=== PATIENT | female | born 1965 | race Two or more races ===

== ENCOUNTER → 2020-12-05 | Outpatient (CLI) | payer OTHER ==
[~2020-12-05] MED LIST: AMLO1CAP5 PO; ASPI-630 PO; AZEL137S3 NS; FLAX10003 PO; FLUT16SP NS; HYDR12.575 PO; LOVA20TA2 PO; MULT-496 PO
== END ==
LOC: LAB 10:14
PROVIDERS: ATTEND Orthopaedic Surgery
DX: Z01.812 Encounter for preprocedural laboratory examination (principal); Z20.828 Contact with and (suspected) exposure to other viral communicable diseases
CPT/HCPCS: U0003

== ENCOUNTER 2020-12-08 09:46 | Day surgery (SDC) | payer OTHER ==
--- NOTE | 2020-12-07 19:44 | PDOC1 ---
History and Physical Date of Admission Date of Admission 12/08/2020 Identification/Chief Complaint Chief Complaint Right knee pain Source Source: Chart review, Patient History of Present Illness History of Present Illness 55-year-old wtih right knee pain. Works as a deputy. History of right knee meniscus tear with arthroscopic meniscectomy by me in 2012. She describes p rogressive bilateral knee pain for years that has since especially progressed after working a lot of overtime and shopping for [employer]. Patient locates sharp and throbbing pain that became so severe that she eventually presented to [facility] ED on 09/27/20 where an MRI was ordered, as shown below with recurrent meniscus tear. Since then, patient reports that her pain has persisted and is aggravated by movement, walking, and standing. She also notices some mechanical loose body symptoms: locking with a feeling like her knee "needs to pop". She has used a brace which has helped. Ambulating with single crutch. Current Medications Current Medications Current Medications Ondansetron HCl (Zofran) 4 mg PRN Q6HRS PRN IV NAUSEA/VOMITING; Start 12/08/20 at 07:00; Stop 12/09/20 at 06:59 Fentanyl Citrate (Fentanyl 2ml Vial) 25 mcg PRN Q5MIN PRN IV MILD PAIN 1-3; Start 12/08/20 at 07:00; Stop 12/09/20 at 06:59 Fentanyl Citrate (Fentanyl 2ml Vial) 50 mcg PRN Q5MIN PRN IV MODERATE TO SEVERE PAIN; Start 12/08/20 at 07:00; Stop 12/09/20 at 06:59 Morphine Sulfate (Morphine Sulfate) 1 mg PRN Q10MIN PRN IV SEVERE PAIN 7-10; Start 12/08/20 at 07:00; Stop 12/09/20 at 06:59; Status UNV Ringer's Solution 1,000 ml @ 30 mls/hr Q24H IV ; Start 12/08/20 at 07:00; Stop 12/08/20 at 18:59 Lidocaine HCl (Xylocaine-Mpf 1% 2ml Vial) 2 ml PRN 1X PRN ID PRIOR TO IV START; Start 12/08/20 at 07:00; Stop 12/09/20 at 06:59 Hydromorphone HCl (Dilaudid) 0.5 mg PRN Q10MIN PRN IV SEV PAIN, Second choice; Start 12/08/20 at 07:00; Stop 12/09/20 at 06:59; Status UNV Prochlorperazine Edisylate (Compazine) 5 mg PACU PRN PRN IV NAUSEA, MRX1; Start 12/08/20 at 07:00; Stop 12/09/20 at 06:59 Vancomycin HCl 250 ml @ 250 mls/hr 1X PREOP PRN IV PRIOR TO SURGERY; Start 12/07/20 at 17:30 Active Scripts Active Reported Azelastine Hcl 137 Mcg/0.137 Ml Jefferson.pump 137 Mcg NS DAILY Fluticasone Propionate Nasal Jefferson (Fluticasone Propionate) 16 Gm Jefferson.susp 2 Jefferson NS DAILY Aspirin 81 Mg Tab.chew 81 Mg PO DAILY Hydrochlorothiazide Capsule (Hydrochlorothiazide) 12.5 Mg Capsule 12.5 Mg PO DAILY Lovastatin 20 Mg Tablet 20 Mg PO HS Lotrel 5-10 Mg Capsule (Amlodipine Besylate/Benazepril) 1 Each Capsule 1 Each PO DAILY Flax Oil (Flaxseed Oil) 1,000 Mg Capsule 1,000 Mg PO DAILY Daily Value (Multivitamin) 1 Each Tablet 1 Each PO DAILY Allergies Allergies: Coded Allergies: Penicillins (Verified Allergy, Intermediate, SWELLING, ITCHING, RASH, 12/04/20) codeine (Verified Allergy, Intermediate, SWELLING,ITCHING, RASH, 12/04/20) hydrocodone (Verified Allergy, Intermediate, SWELLING, ITCHING, 12/04/20) ibuprofen (Verified Allergy, Intermediate, SWELLING,ITCHING, RASH, 12/04/20) clindamycin (Verified Allergy, Mild, Nausea and Vomiting, 12/04/20) tramadol (Verified Allergy, Mild, Nausea and Vomiting, 12/04/20) Physical Exam General: Alert, Cooperative HEENT: Atraumatic Lungs: Normal air movement Heart: RRR Abdomen: Soft Extremities: Other (The RIGHT knee shows normal alignment, no masses and no effusion. There is tenderness at the medial joint line and a positive medial Jeff's test. The lateral joint line shows no tenderness. Range of motion is 0-135 degrees. There is trace patellofemoral crepitus. Jeff's test is positive. There is medial joint line pain with deep flexion and especially with rotation of the tibia. The knee is stable to varus and valgus stress without subluxation or laxity. The ACL feels intact on Kamlesh testing. Muscle strength is normal (5/5) for quadriceps and hamstrings, and muscle tone is normal. The skin is normal with no scars, rashes, lesions or ulcers. Light touch sensation is intact. No edema and no varicosities. Dorsalis pedis pulse is intact and capillary refill is normal. ) Images Images Outside MRI from [facility] right knee 10/13/2020 shows distinct medial meniscus tear series 401 image 13 and 12. There is some posterior femoral chondromalacia on series 401 image 11. Impression: 1. Horizontal tear extends through the posterior horn and body of the medial meniscus. 2. More vertical tearing of the junction of the posterior horn and body of lateral meniscus. 3. Ligaments are intact. 4. A loose body is noted along the inferior aspect of the suprapatellar bursa measuring 8 mm. [facility] [address] [place], [place] [id number] IMAGING REPORT Signed PATIENT: EDISON DUNCAN ACCOUNT: [id number] : 1965 LOCATION: [facility] AGE: 55 SEX: F EXAM STATUS: PRE CLI ORD. PHYSICIAN: CANDIDO GUO MD REASON: BILAT KNEE PAIN PROCEDURE: KNEE STANDING BILAT AP XR KNEE_AP BILAT STANDING, XR KNEE 1-2 VIEWS 11/09/2020 9:36 AM INDICATION: Bilateral knee pain COMPARISON: None available. TECHNIQUE: 3 views the right and 3 views left knee are provided. FINDINGS/ IMPRESSION: No significant knee joint effusion. There is no acute fracture or dislocation. Joint mild patellofemoral joint space narrowing of the right knee with marginal osteophytosis as well as mild osteoarthrosis. Mild bilateral medial femorotibial osteoarthrosis with mild joint space scarring. Bone mineralization is within normal limits. Regional soft tissues are within normal limits. There is no soft tissue gas or osseous erosion. No radiopaque foreign body. Electronically signed by: Rose Quispe MD (11/09/2020 10:51 AM) [id number] DICTATED and SIGNED BY: ROSE QUISPE MD DATE: 11/09/20 1050 VTE Prophylaxis Ordered VTE Prophylaxis Devices: Yes VTE Pharmacological Prophylaxi: Yes Assessment/Plan Assessment/Plan Her MRI shows a medial and lateral meniscus tear. We reviewed her MRI with previous x-rays and discussed the natural history of the condition as well as the risks, benefits, and alternatives to treatment. Given her failure of more conservative measures and continued severe pain with loss of function, my recommendation is arthroscopic surgery. Plan for right knee arthroscopy with meniscectomy and possible loose body removal. We discussed potential risks of arthroscopic surgery, including risks of bleeding, infection, progressive arthritis, blood clots, or other potential surgical or anesthetic complications. We also discussed postoperative treatment and expectations including progression of arthritis following knee arthroscopy. Meniscus tears unfortunately are a risk factor to develop osteoarthritis. My current recommendation is for arthroscopic surgery considering her age and the minimal degenerative changes seen radiographically. The complex meniscus tear is a sign that her knee will further deteriorate in the future, hopefully years from now, and she might ultimately need knee replacement when she is in her 60s or 70s. I do not recommend knee replacement with these minimal degenerative changes, and believe that she has much to benefit from an arthroscopic procedure. All of her questions were answered and she desires to proceed with surgery. She is here today for elective right knee arthroscopic medial and lateral meniscectomy. Justifications for Admission Other Justification CANDIDO GUO MD Dec 07, 2020 19:44
[~2020-12-08] VITALS: Ht 163.8 cm; Wt 102.1 kg
[~2020-12-08 09:46] MED LIST changes: +BUPIVACAINE-EPI 0.25%-1:200000 MPF 30 ML VIAL. INJ ONE; +HYDROmorphone 2 MG/ML VIAL IV PRN; +LIDOCAINE 1% PF 2 ML VIAL. ID PRN; +MORPHINE SULFATE 2 MG/ML VIAL. IV PRN; +ONDANSETRON PF 4 MG/2 ML VIAL. IV PRN; +PROCHLORPERAZINE 10 MG/2 ML VIAL. IV PRN; +VANCOMYCIN 1GM IVPB FOR OMNI 250 ML IV PRN; +fentaNYL PF VIAL 100 MCG/2 ML VIAL IV PRN
[2020-12-08] MEDS: IV RINGERS,LACTATED 1000ML 1,000 ML IV SCH ×2 (10:27→13:07)
[2020-12-08] MEDS ORDERED: fentaNYL PF VIAL 100 MCG/2 ML VIAL ONE ×2 (10:58→12:56)
[2020-12-08] MEDS ORDERED: ONDANSETRON PF 4 MG/2 ML VIAL. ONE (10:58)
[2020-12-08] MEDS ORDERED: PROPOFOL 10 MG/ML (20ML) VIAL. IV ONE (10:58)
[2020-12-08] MEDS ORDERED: LIDOCAINE 2% PF 5 ML VIAL. ONE (10:58)
[2020-12-08] MEDS ORDERED: DEXAMETHASONE SOD PHOS 4 MG/ML VIAL ONE (10:58)
[2020-12-08] MEDS ORDERED: EPINEPHrine VIAL 30 MG/30 ML VIAL ONE (11:18)
[2020-12-08] MEDS ORDERED: SEVOFLURANE 61 TO 120 MINUTES. IH ONE (12:15)
[2020-12-08] MEDS: fentaNYL PF VIAL 100 MCG/2 ML VIAL IV PRN ×2 (13:06→13:21)
--- NOTE | 2020-12-08 13:07 | PDOC4 ---
Operative Note Operative Note Date of Procedure: December 08, 2020 Preoperative Diagnosis: right knee medial and lateral meniscus tears Postoperative Diagnosis: * complex tear medial meniscus, current injury, right knee, initial encounter, S83.231A * complex tear of lateral meniscus, current injury, right knee, initial encounter, S83.271A Procedures Performed: right knee arthroscopy, surgical, with meniscectomy, medial AND lateral, including meniscal shaving, including debridement/shaving of articular cartilage (chondroplasty) CPT 09171 Surgeon: Candido Mcfarland MD Woods Warden: JOSE Perez Anesthesia: General Estimated Blood Loss: 10 mL Specimens: none Drains: none Complications: none Tourniquet time: 34 minutes at 300 mm Hg Indications for Procedure: The patient is a 55-year-old with right knee pain, unrelieved with nonoperative treatment. Exam and MRI are consistent with a meniscus tear. We talked about the risks and benefits of proceeding with an arthroscopic procedure. We talked about potential risks of ongoing pain, progressive arthritis, bleeding, infection, blood clots, or other potential surgical or anesthetic complications. All of the patient's questions about surgery were answered and they desired to proceed. Written consent was obtained. Description of Operation: The patient was identified in the preoperative holding area. The correct right knee was marked by me. The patient was taken to the operating room, where a general anesthetic was used. Preoperative antibiotics were given intravenously. A time-out procedure was performed. A tourniquet was placed on the upper thigh. Local anesthetic 20 mL of 0.25% bupivacaine was injected using sterile technique into the knee joint. The limb was prepared circumferentially with ChloraPrep solution and sterile waterproof arthroscopy drapes were applied. The limb was exsanguinated with an Esmarch bandage and the tourniquet was inflated. Lateral and medial arthroscopy portals were established. The medial meniscus showed a complex unrepairable tear with unstable flaps. A meniscectomy was performed with basket forceps and the motorized shaver back to a smooth stable base, and the resection tapered into the middle one-third of the meniscus.The medial tibiofemoral joint showed chondromalacia Outerbridge grade I, so no chondroplasty was required.The intercondylar notch was free of loose bodies, and the ACL was intact. The lateral tibiofemoral joint showed a complex unrepairable meniscus tear, and a meniscectomy was performed with basket forceps and the motorized shaver back to a smooth stable base.The lateral articular surfaces showed chondromalacia Outerbridge grade II, so a shaving chondroplasty was performed removing loose unstable fragments of articular cartilage. The patellofemoral joint showed chondromalacia Outerbridge grade II, so a shaving chondroplasty was performed removing loose unstable fragments of articular cartilage. The suprapatellar pouch, medial and lateral gutters were free of loose bodies. There was a little bit of synovium around the patella which maybe is mimicking the loose body. No loose body could be detected. I a lso placed the arthroscope in the posterior compartment and there was no loose body in that location. Copious irrigation was used to drain all meniscal and chondral fragments, and the knee was drained of fluid. The portals were closed with #3-0 Prolene interrupted sutures. Additional local anesthetic, 30 mL of 0.25% bupivacaine with epinephrine was injected. A bulky sterile dressing was applied and the tourniquet was released. Needle and sponge counts were correct and there were no apparent complications. CANDIDO MCFARLAND MD Dec 08, 2020 13:07
[2020-12-08 13:34] VITALS: BP 168/78
[2020-12-08] MEDS ORDERED: ACETAMINOPHEN 500 MG TABLET PO ONE (13:45)
== END 2020-12-08 14:30 | disposition home or self-care (01) ==
LOC: SURG 09:46
PROVIDERS: ATTEND Orthopaedic Surgery
DX: S83.231A Complex tear of medial meniscus, current injury, right knee, initial encounter (principal); S83.271A Complex tear of lateral meniscus, current injury, right knee, initial encounter; M94.261 Chondromalacia, right knee; E78.00 Pure hypercholesterolemia, unspecified; I10 Essential (primary) hypertension; K21.9 Gastro-esophageal reflux disease without esophagitis; G47.30 Sleep apnea, unspecified; Z90.710 Acquired absence of both cervix and uterus; Z98.51 Tubal ligation status; Z98.890 Other specified postprocedural states; Z79.82 Long term (current) use of aspirin; Z79.899 Other long term (current) drug therapy; Z88.0 Allergy status to penicillin; Z88.1 Allergy status to other antibiotic agents; Z88.5 Allergy status to narcotic agent; Z88.8 Allergy status to other drugs, medicaments and biological substances; X58.XXXA Exposure to other specified factors, initial encounter; Y93.89 Activity, other specified; Y92.89 Other specified places as the place of occurrence of the external cause; Y99.8 Other external cause status
CPT/HCPCS: 29880; J0171; J1100; J2405; J2704; J3010; J3370; J3490

== ENCOUNTER → 2021-06-22 | Outpatient (CLI) | payer OTHER ==
[~2021-06-22] MED LIST changes: -BUPIVACAINE-EPI 0.25%-1:200000 MPF 30 ML VIAL. INJ ONE; -HYDROmorphone 2 MG/ML VIAL IV PRN; -LIDOCAINE 1% PF 2 ML VIAL. ID PRN; -MORPHINE SULFATE 2 MG/ML VIAL. IV PRN; -ONDANSETRON PF 4 MG/2 ML VIAL. IV PRN; -PROCHLORPERAZINE 10 MG/2 ML VIAL. IV PRN; -VANCOMYCIN 1GM IVPB FOR OMNI 250 ML IV PRN; -fentaNYL PF VIAL 100 MCG/2 ML VIAL IV PRN
--- NOTE | 2021-06-22 16:30 | KCIC ---
EXAM: Lumbar spine MRI without contrast. HISTORY: Pain. TECHNIQUE: Multiplanar, multisequence magnetic resonance imaging of the lumbar spine was performed wi thout contrast. COMPARISON: 06/30/2006 FINDINGS: There is mild lumbar levocurvature. There is 3 mm retrolisthesis of L5 on S1. There is dege nerative endplate remodeling with disc space narrowing, osteophytosis, Schmorl's node formation and d isc desiccation at L5-S1. There is also disc desiccation at L4-L5. There are few osseous hemangiomas. There is no suspicious osseous lesion. There is no fracture. The conus terminates at L1. At L1-L2, there is no stenosis. At L2-L3, there is no stenosis. At L3-L4, there is a minimal disc bulge and endplate remodeling. There is mild left facet arthropathy . There is no stenosis. At L4-L5, there is a shallow broad-based left paracentral to lateral recess disc protrusion with ciara lar tear superimposed on a disc bulge and endplate remodeling. There is mild bilateral facet arthropa thy. There is mild left foraminal stenosis. There is narrowing of the left lateral recess. There is m inimal central canal stenosis. At L5-S1, there is a shallow broad-based posterior central disc protrusion with 3 mmHg inferior extru cyrus and there are bilateral foraminal to lateral disc osteophyte complexes superimposed on a diffuse disc bulge and endplate remodeling. There is slight retrolisthesis. There is moderate right and mild left foraminal stenosis with abutment the exiting right greater than left L5 nerve roots. IMPRESSION: Degenerative change at the lower lumbar levels, described in detail above. This is minima lly increased compared to the prior study, resulting in mild left foraminal stenosis and narrowing of the left lateral recess with minimal central canal stenosis at L4-L5 and moderate right and mild lef t foraminal stenosis at L5-S1. Electronically signed by: Keiry Coppola MD (06/22/2021 4:28 PM) [id number]
== END ==
LOC: KCIC MRI 15:20
PROVIDERS: ATTEND Physician Assistant
DX: M47.816 Spondylosis without myelopathy or radiculopathy, lumbar region (principal); M51.27 Other intervertebral disc displacement, lumbosacral region; M48.07 Spinal stenosis, lumbosacral region; M43.17 Spondylolisthesis, lumbosacral region; M25.78 Osteophyte, vertebrae; M51.47 Schmorl's nodes, lumbosacral region
CPT/HCPCS: 72148

== ENCOUNTER → 2021-07-17 | Outpatient (CLI) | payer OTHER ==
[~2021-07-17] MED LIST changes: +CHOL5000 PO; +POTA10TA12 PO; +TURM500C4 PO
--- NOTE | 2021-07-17 16:02 | PDOC1 ---
INITIAL PAIN CONSULT DATE OF SERVICE: DOS: DATE: 07/17/21 TIME: 15:56 CHIEF COMPLAINT: Chief Complaint: Low back and left lower extremity pain HISTORY OF PRESENT ILLNESS: 56-year-old female presents with history of pain low back left lower extremity for many years worse over the past 1 year or so not the result of any specific injury or accident that she is aware but has been multiple injuries over the years by her report. Patient reports pain in the low back now rating the left lower extremity posterior gluteus posterior lateral thigh lateral anterior thigh anteromedial thigh medial lower leg and calf on the left side primarily some on the right but mostly on the left patient reports is worse with walking standing changing positions getting up from a seated position is waking her from sleep at night least once or twice through the night patient reports does affect her ability to walk which does not use any assistive devices. Patient is starting physical therapy tomorrow patient reports the pain is sharp in the low back throbbing the legs intermittent intensity tingling and numbness in the back and leg cramping and aching in the left lower extremity as well as in the low back. Patient reports her disability rating 0-10 10 made worse with 9 with family home responsibilities 10 with recreation social activity and occupational activity 8 with self-care and 8 with light support activities specially with sleeping. Patient has been taking [id number]-wummtow medications such as Tylenol and Motrin which do decrease the pain fairly significantly but only by about 30 to 40% and Advil tends to work better. Patient did have an MRI scan lumbar spine show degenerative change in the lower lumbar levels with L4-5 shallow broad-based left paracentral to lateral recess disc protrusion and annular tear with mild foraminal stenosis L5-S1 shows central broad-based central disc protrusion with bilateral to lateral disc osteophyte complexes and moderate right and mild left foraminal stenosis with abutment of the exiting right greater than left L5 nerve roots. PAST MEDICAL HISTORY: PMH: Hypertension, arthritis, multiple allergies PREVIOUS SURGERIES: Past Surgical Hx: Hysterectomy, tubal ligation, right colon resection CURRENT MEDICATIONS: Current Meds: Active Scripts Medications Dose Route/Sig Max Daily Dose Days Date Category Dose Instructions Vitamin D3 (Vitamin D) 125 Mcg Capsule 125 Mcg PO DAILY 07/17/21 Reported 5,000 UNITS = 125 MCG Klor-Con 10 (Potassium Chloride) 10 Meq Tablet.er 1 Tab PO DAILY 30 07/17/21 Reported Turmeric 500 mg Capsule (Turmeric/Turmeric Root Extract) 1 Each Capsule 1 Cap PO BID 30 07/17/21 Reported Azelastine Hcl 137 Mcg/0.137 Ml Redfield.pump 137 Mcg NS DAILY 12/06/20 Reported Fluticasone Propionate Nasal Redfield (Fluticasone Propionate) 16 Gm Redfield.susp 2 Redfield NS DAILY 12/06/20 Reported Aspirin 81 Mg Tab.chew 81 Mg PO DAILY 12/06/20 Reported Hydrochlorothiazide Capsule (Hydrochlorothiazide) 12.5 Mg Capsule 12.5 Mg PO DAILY 12/06/20 Reported Lovastatin 20 Mg Tablet 20 Mg PO HS 12/06/20 Reported Lotrel 5-10 Mg Capsule (Amlodipine Besylate/Benazepril) 1 Each Capsule 1 Each PO DAILY 12/06/20 Reported Flax Oil (Flaxseed Oil) 1,000 Mg Capsule 1,000 Mg PO DAILY 12/06/20 Reported Daily Value (Multivitamin) 1 Each Tablet 1 Each PO DAILY 12/06/20 Reported ALLERGIES; Allergies: Coded Allergies: Penicillins (Verified Allergy, Intermediate, SWELLING, ITCHING, RASH, 12/08/20) codeine (Verified Allergy, Intermediate, SWELLING,ITCHING, RASH, 12/08/20) hydrocodone (Verified Allergy, Intermediate, SWELLING, ITCHING, 12/08/20) ibuprofen (Verified Allergy, Intermediate, SWELLING,ITCHING, RASH, 12/08/20) clindamycin (Verified Allergy, Mild, Nausea and Vomiting, 12/08/20) tramadol (Verified Allergy, Mild, Nausea and Vomiting, 12/08/20) FAMILY HISTORY: Family Hx: No major medical problems or conditions that she is aware of. SOCIAL HISTORY: Social Hx: Patient is nondrug alcohol does not smoke not use any illegal illicit recreational drugs is single lives locally at home has 1 child living at home with her works in the [employer] and lives locally in [facility] REVIEW OF SYSTEMS: ROS: Positive for those items mentioned in history of present illness, all systems are reviewed, otherwise negative ,and are complete full and well-documented on patient's chart. PHYSICAL EXAM: VS: Blood pressure is 141/90 pulse 78 respirations 18 temperature 98.9 F height is 5 feet 4 inches weight is 242 pounds PE: PHYSICAL EXAMINATION: GENERAL: The patient is awake, alert, oriented, appropriate, very pleasant in demeanor HEENT: Shows normocephalic, atraumatic. Extraocular movements are intact and symmetrical. Oral cavity: Mucous membranes moist and pink. Dentition is intact. NECK: Shows anterior throat supple without palpable lymphadenopathy noted. Swallow reflex symmetrical. CHEST: Shows normal on inspection. Breath sounds are clear bilaterally, no rales rhonchi wheezes auscultated. HEART: Shows S1, S2 clear. No murmurs auscultated. ABDOMEN: Soft, nontender, nondistended, obese. No palpable organomegaly is noted. No rebound or guarding demonstrated. BACK: Shows spine grossly in the midline. Normal-appearing cervical lordotic curvature. There is slightly increased thoracic kyphosis, some minor flattening of the lumbar lordotic curvature. Lumbar paraspinous muscles show symmetrical on inspection, on palpation shows some moderate tenderness diffusely throughout the upper, middle and lower distribution of the paraspinous muscles bilaterally and also into the lower thoracic paraspinous musculature, firm and tender, but without specific trigger points, without radiation of pain. The patient has good rotational motion of the lumbar spine, both laterally as well as extension and flexion without significant difficulty. No tenderness over the spinous processes, sacrum or sacroiliac regions. EXTREMITIES: Lower extremities show deep tendon reflexes 2+ in the patellar and tendo calcaneus tendons. Motor exam is 5 on a scale of 5 with right dorsiflexion, extension, quadriceps and hamstring flexion and 4/5 on the left. Peripheral pulses are 1+ posterior tibial. No peripheral edema is noted bilaterally. Lower extremities are warm and dry to touch, equal in color and appearance. Straight leg raise noted to be positive on the left at approximate 40 degrees, decreased with knee flexion, right side is negative. Gaenslen's and Matteo's maneuvers are negative bilaterally. The patient is able to stand, stand on her toes without significant difficulty or loss of balance walks with a slight favoring gait does appear to favor the left lower extremities with the right but is not using any assistive devices to ambulate. SKIN: Shows warm and dry, good turgor. No edema. No sores, rashes or bruising throughout. IMPRESSION: Impression: 56-year-old female with long history low back left lower extremity pain and radicular fashion MRI scan lumbar spine as noted Arthritis Hypertension Plan: Options were discussed with the patient including conservative medical management physical therapies and interventional techniques. Patient would like to consider interventional techniques that she start her physical therapy tomorrow. Patient will see how physical therapy proceeds and is still significant pain in the back and left lower extremity, will have her contact the office for follow-up at that time. MATTHEW VELÁSQUEZ MD Jul 17, 2021 16:02
== END | disposition home or self-care (01) ==
LOC: PNCL 13:15
PROVIDERS: ATTEND Anesthesiology
DX: M54.5 Low back pain (principal); M79.605 Pain in left leg; I10 Essential (primary) hypertension; M19.90 Unspecified osteoarthritis, unspecified site; E78.00 Pure hypercholesterolemia, unspecified; G47.30 Sleep apnea, unspecified; K21.9 Gastro-esophageal reflux disease without esophagitis; Z90.710 Acquired absence of both cervix and uterus; Z98.51 Tubal ligation status; Z98.890 Other specified postprocedural states; Z88.0 Allergy status to penicillin; Z88.1 Allergy status to other antibiotic agents; Z88.5 Allergy status to narcotic agent; Z88.8 Allergy status to other drugs, medicaments and biological substances; Z79.899 Other long term (current) drug therapy; Z79.82 Long term (current) use of aspirin
CPT/HCPCS: G0463

== ENCOUNTER → 2021-10-31 | Outpatient (CLI) | payer OTHER ==
--- NOTE | 2021-10-31 14:26 | KCIC ---
Examination: MRI of the left knee without contrast HISTORY: History of left knee pain COMPARISON: None available Technique: Multiplanar, multisequence MR imaging of the left knee was performed FINDINGS: The anterior cruciate ligament, posterior cruciate ligament appears intact. Horizontal increased sign al identified in the body and posterior horn of the medial meniscus likely tear probably degenerative tear. There is a tiny cystic structure extending medially from the body of the medial meniscus measu ring 4 mm likely meniscal cyst. The lateral meniscus appears intact. The medial collateral ligament i s intact. Lateral collateral ligamentous complex appearing the fibular collateral ligament, biceps fe britni renal comparison appears intact The extensor mechanism is intact. There is moderate joint space loss identified in the medial, latera l and patellofemoral compartments. There is mild trabecular edema identified in the posterior medial femoral condyle and anterior aspect of the tibial plateau. The medial, lateral retinaculum appears intact. Small knee joint effusion with small popliteal cyst. Moderate joint space loss medial, lateral, beckford lofemoral compartments. IMPRESSION: 1. Horizontal increased signal identified in the body and posterior horn of the medial meniscus like ly degenerative tear. There is a tiny cystic structure extending medially from the body of the medial meniscus measuring 4 mm likely meniscal cyst. 2. Moderate tricompartmental degenerative changes with mild trabecular edema identified in the poste rior medial femoral condyle and anterior aspect of the tibial plateau. 3. Small knee joint effusion with small popliteal cyst. Electronically signed by: Erik Herrera MD (10/31/2021 2:24 PM) [id number]
== END ==
LOC: KCIC MRI 12:19
PROVIDERS: ATTEND Physician Assistant
DX: S83.207A Unspecified tear of unspecified meniscus, current injury, left knee, initial encounter (principal); M17.12 Unilateral primary osteoarthritis, left knee; R60.0 Localized edema; M25.462 Effusion, left knee; M71.22 Synovial cyst of popliteal space [Baker], left knee; M22.8X2 Other disorders of patella, left knee; M67.52 Plica syndrome, left knee; X58.XXXA Exposure to other specified factors, initial encounter; Y93.89 Activity, other specified; Y92.89 Other specified places as the place of occurrence of the external cause; Y99.8 Other external cause status
CPT/HCPCS: 73721

== ENCOUNTER → 2022-03-11 | Outpatient (CLI) | payer OTHER ==
--- NOTE | 2022-03-11 10:28 | RAD ---
EXAM: XR KNEE_LT 1-2 VIEWS 03/11/2022 9:22 AM CLINICAL INDICATION: Left knee pain COMPARISON: None TECHNIQUE: AP and lateral views of the left knee FINDINGS: No acute fracture. Alignment is normal. There is mild medial compartment narrowing. Tiny t ricompartmental osteophytes. Unchanged subchondral lucency in the patella. No joint effusion. IMPRESSION: Unchanged mild tricompartmental degenerative joint disease. Electronically signed by: Jagruti Canela MD (03/11/2022 10:25 AM) [id number]
== END ==
LOC: RAD 08:44
PROVIDERS: ATTEND Internal Medicine
DX: Z02.71 Encounter for disability determination (principal); M17.12 Unilateral primary osteoarthritis, left knee; M25.762 Osteophyte, left knee
CPT/HCPCS: 73560

== ENCOUNTER 2022-03-22 12:04 | Emergency (ER) | payer MEDICAID, OTHER ==
[~2022-03-22] VITALS: Ht 162.6 cm; Wt 104.5 kg
[2022-03-22] MEDS ORDERED: hydrOXYzine 25 MG TABLET PO PRN (14:00)
[2022-03-22 14:06] LABS: BASO % 1 % (0-3); EOS # 0.2 x10^3/uL (0.0-0.7); EOS % 3 % (0-3); HEMATOCRIT 40.3 % (36.0-47.0); HEMOGLOBIN 13.9 g/dL (12.0-15.5); LYMPH # 1.5 x10^3/uL (1.0-4.8); LYMPH % 28 % (24-48); MEAN CORPUSCULAR HEMOGLOBIN 31 pg (25-35); MEAN CORPUSCULAR HGB CONC 34 g/dL (31-37); MEAN CORPUSCULAR VOLUME 90 fL (79-100); MONO # 0.4 x10^3/uL (0.0-1.1); MONO % 7 % (0-9); NEUT # 3.5 x10^3/uL (1.8-7.7); NEUT % 62 % (31-73); PLATELET COUNT 197 x10^3/uL (140-400); RED CELL DISTRIBUTION WIDTH 13.4 % (11.5-14.5); WHITE BLOOD COUNT 5.6 x10^3/uL (4.0-11.0)
[2022-03-22 14:13] VITALS: BP 122/74
--- NOTE | 2022-03-22 14:14 | RAD ---
EXAMINATION: Chest radiograph. VIEWS: Single AP view of the chest COMPARISON: None INDICATION:56 years, Female, chest pain. FINDINGS: Normal cardiomediastinal silhouette. Patchy bibasilar opacities are felt to be secondary to soft tiss ue summation. No focal consolidation. No pleural effusion or pneumothorax. No acute osseous process. IMPRESSION: No confluent airspace disease. Electronically signed by: Zenon Rodriguez DO (03/22/2022 2:12 PM) [facility]
[2022-03-22 14:30] LABS: CALCIUM 8.8 mg/dL (8.5-10.1); CREATININE 0.9 mg/dL (0.6-1.0); GFR 78.1; POTASSIUM 3.5 mmol/L (3.5-5.1)
[2022-03-22 14:40] LABS: ALBUMIN 3.5 g/dL (3.4-5.0); ALBUMIN/GLOBULIN RATIO 0.9 (1.0-1.7); TOTAL BILIRUBIN 0.5 mg/dL (0.2-1.0); TOTAL PROTEIN 7.6 g/dL (6.4-8.2)
--- NOTE | 2022-03-22 16:40 | PHYS DOC ---
Past Medical History Past Medical History: High Cholesterol, Hypertension (JOE AREVALO) Past Surgical History: No Surgical History (JOE AREVALO) Smoking Status: Never Smoker Alcohol Use: None (JOE AREVALO) General Adult EDM: Chief Complaint: CHEST PAIN HPI: HPI: Patient is a 56 year old male with past medical history including hypertension and hyperlipidemia who presents with left-sided chest and neck pain that began this morning while she was crying. Patient states that about 1 week ago, she lost her job of 18 years. She has been having difficulty navigating unemployment. Patient was very upset this morning when she was told she would hear back, and has not. She is very worried about financial matters and paying her bills. Patient denies diaphoresis, lightheadedness, dizziness, weakness, nausea/vomiting associated with her pain today. Patient has no other complaints at this time. (JOE AREVALO) Review of Systems: Review of Systems: Constitutional: Denies fever, chills or generalized weakness Eyes: Denies change in visual acuity, visual field deficits or discharge HENT: Denies ear pain, nasal congestion or sore throat Respiratory: Denies cough or shortness of breath Cardiovascular: See HPI GI: Denies abdominal pain, nausea, vomiting, bloody stools or diarrhea : Denies dysuria or hematuria Musculoskeletal: Denies back pain or joint pain Integument: Denies rash or other skin lesion Neurologic: Denies headache, focal weakness or sensory changes (JOE AREVALO) Heart Score: C/O Chest Pain: Yes HEART Score for Chest Pain: HEART Score for Chest Pain Response (Comments) Value History Slighlty/Non-Suspicious 0 ECG Normal 0 Age >45 - < 65 1 Risk Factors >3 Risk Factors or Hx CAD 2 Troponin < Normal Limit 0 Total 3 Risk Factors: Risk Factors: HTN, HLD, obesity. Risk Scores: Score 0 - 3: 2.5% MACE over next 6 weeks - Discharge Home Score 4 - 6: 20.3% MACE over next 6 weeks - Admit for Clinical Observation Score 7 - 10: 72.7% MACE over next 6 weeks - Early Invasive Strategies (JOE AREVALO) Current Medications: Current Medications Medications (Trade) Dose Ordered Sig/Suma Start Time Stop Time Status Last Admin Dose Admin Hydroxyzine HCl (Atarax) 50 mg 1X PRN 03/22/22 14:00 03/22/22 15:30 50 MG (JOE AREVALO) Allergies: Allergies: Allergies Coded Allergies Type Severity Reaction Last Updated Verified Penicillins Allergy Intermediate SWELLING, ITCHING, RASH 12/08/20 Yes codeine Allergy Intermediate SWELLING,ITCHING, RASH 12/08/20 Yes hydrocodone Allergy Intermediate SWELLING, ITCHING 12/08/20 Yes ibuprofen Allergy Intermediate SWELLING,ITCHING, RASH 12/08/20 Yes clindamycin Allergy Mild Nausea and Vomiting 12/08/20 Yes tramadol Allergy Mild Nausea and Vomiting 12/08/20 Yes (JOE AREVALO) Physical Exam: PE: Constitutional: Well developed, well nourished, no acute distress, non-toxic appearance, tearful. HENT: Normocephalic, atraumatic, bilateral external ears normal, nose normal. Eyes: EOMI, conjunctiva normal, no discharge. Neck: Normal range of motion, no stridor. Cardiovascular: Heart regular rate and rhythm. No apparent murmurs, rubs or gallops. Lungs & Thorax: Equal thoracic expansion, no increased work of breathing. Skin: Warm, dry, no erythema, no rash. Extremities: No cyanosis, no clubbing, ROM intact, no edema. Neurologic: Alert and oriented x4, normal motor function, normal sensory function, no focal deficits noted. (JOE AREVALO) Current Patient Data: Labs: Laboratory Tests Test 03/22/22 12:45 White Blood Count 5.6 x10^3/uL (4.0-11.0) Red Blood Count 4.50 x10^6/uL (3.50-5.40) Hemoglobin 13.9 g/dL (12.0-15.5) Hematocrit 40.3 % (36.0-47.0) Mean Corpuscular Volume 90 fL (79-100) Mean Corpuscular Hemoglobin 31 pg (25-35) Mean Corpuscular Hemoglobin Concent 34 g/dL (31-37) Red Cell Distribution Width 13.4 % (11.5-14.5) Platelet Count 197 x10^3/uL (140-400) Neutrophils (%) (Auto) 62 % (31-73) Lymphocytes (%) (Auto) 28 % (24-48) Monocytes (%) (Auto) 7 % (0-9) Eosinophils (%) (Auto) 3 % (0-3) Basophils (%) (Auto) 1 % (0-3) Neutrophils # (Auto) 3.5 x10^3/uL (1.8-7.7) Lymphocytes # (Auto) 1.5 x10^3/uL (1.0-4.8) Monocytes # (Auto) 0.4 x10^3/uL (0.0-1.1) Eosinophils # (Auto) 0.2 x10^3/uL (0.0-0.7) Basophils # (Auto) 0.0 x10^3/uL (0.0-0.2) Sodium Level 141 mmol/L (136-145) Potassium Level 3.5 mmol/L (3.5-5.1) Chloride Level 104 mmol/L (98-107) Carbon Dioxide Level 31 mmol/L (21-32) Anion Gap 6 (6-14) Blood Urea Nitrogen 12 mg/dL (7-20) Creatinine 0.9 mg/dL (0.6-1.0) Estimated GFR (Cockcroft-Gault) 78.1 BUN/Creatinine Ratio 13 (6-20) Glucose Level 123 mg/dL (70-99) H Calcium Level 8.8 mg/dL (8.5-10.1) Total Bilirubin 0.5 mg/dL (0.2-1.0) Aspartate Amino Transferase (AST) 21 U/L (15-37) Alanine Aminotransferase (ALT) 39 U/L (14-59) Alkaline Phosphatase 84 U/L (46-116) Troponin I High Sensitivity 5 ng/L (4-50) Total Protein 7.6 g/dL (6.4-8.2) Albumin 3.5 g/dL (3.4-5.0) Albumin/Globulin Ratio 0.9 (1.0-1.7) L Laboratory Tests 03/22/22 12:45 Laboratory Tests 03/22/22 12:45 Vital Signs: Vital Signs Date Time Temp Pulse Resp B/P (MAP) Pulse Ox O2 Delivery O2 Flow Rate FiO2 03/22/22 12:05 98.6 94 22 145/76 (99) 97 Room Air 98.6 (JOE AREVALO) EKG: EKG: EKG Interpreted by Dr. Vizcarra at 1221: Regular rate and rhythm 94 bpm with occasional PVCs. QT 360 ms/QTc 466 ms. No STEMI. EKG Interpreted by Dr. Vizcarra at 1456: Regular rate and rhythm 79 bpm with no ectopic beats. QT 374 ms/QTc 430 ms. No STEMI. (JOE AREVALO) Radiology/Procedures: Radiology/Procedures: PROCEDURE: PORTABLE CHEST 1V EXAMINATION: Chest radiograph. VIEWS: Single AP view of the chest COMPARISON: None INDICATION:56 years, Female, chest pain. FINDINGS: Normal cardiomediastinal silhouette. Patchy bibasilar opacities are felt to be secondary to soft tissue summation. No focal consolidation. No pleural effusion or pneumothorax. No acute osseous process. IMPRESSION: No confluent airspace disease. Electronically signed by: Zenon Rodriguez DO (03/22/2022 2:12 PM) [facility] (JOE AREVALO) Course & Med Decision Making: Course & Med Decision Making Pertinent Labs and Imaging studies reviewed. (See chart for details) Patient is a 56-year-old female who presents with chest pain after being acutely distressed this morning. Work-up today will consist of labs that include troponin, chest x-ray, EKG. Work-up today is reassuring. I believe the patient had an acute stress reaction secondary to increased life stress regarding her unemployment status and difficulty obtaining income. Patient was advised to follow-up with her primary care regarding psychological treatment during this time. She was prescribed hydroxyzine to take in the interim. Strict return precautions were provided. Patient understands and is agreeable to discharge plan. (JOE AREVALO) Dragon Disclaimer: Dragon Disclaimer: This electronic medical record was generated, in whole or in part, using a voice recognition dictation system. (JOE AREVALO) Departure Departure Impression: Primary Impression: Acute stress reaction Additional Impressions: PVC (premature ventricular contraction) Atypical chest pain Disposition: HOME / SELF CARE / HOMELESS Condition: IMPROVED Referrals: CAMILLE WALLACE MD (PCP) Patient Instructions: Stress Additional Instructions: EMERGENCY DEPARTMENT GENERAL DISCHARGE INSTRUCTIONS Thank you for coming to [facility] Emergency Department (ED) today and trusting us with you care. We trust that you had a positive experience in our Emergency Department. If you wish to speak to the department management, you may call the director at . YOUR FOLLOW UP INSTRUCTIONS ARE FOLLOWS: 1. Follow up with your primary care doctor. If you do not have a primary doctor, please ask for a resource list of physicians or clinics that may be able to assist you with follow up care. 2. The emergency provider has interpreted your imaging studies, if any were ordered. The radiology early intervention specialist also reviewed them. If there is a change in the findings, you will be notified in 48 hours when at all possible. 3. If a lab test or culture has been done, your results will be reviewed and you will be notified if you need a change in treatment. 4. Follow instructions verbalized to you and refer to the printouts if needed. ADDITIONAL INSTRUCTIONS AND INFORMATION: 1. Your care today has been supervised by a physician who is specially trained in emergency care. Many problems require more than one evaluation for a complete diagnosis and treatment. We recommend that you schedule your follow up appointment as recommended to ensure complete treatment of you illness or injury. If you are unable to obtain follow up care and continue to have a problem, or if your condition worsens, we recommend that you return to the ED. 2. We are not able to safely determine your condition over the phone nor are we able to give sound medical advice over the phone. For these safety reasons, if you call for medical advice we will ask you to come to the ED for further evaluation. 3. If you have any questions regarding these discharge instructions please call the ED at . SAFETY INFORMATION: In the interest of safety, wellness, and injury prevention; we encourage you to wear your seat belt, if you smoke; quite smoking, and we encourage family to use a protective helmet for bicycling and other sporting events that present an increased risk for head injury. IF YOUR SYMPTOMS WORSEN OR NEW SYMPTOMS DEVELOP, OR YOU HAVE CONCERNS ABOUT YOUR CONDITION; OR IF YOUR CONDITION WORSENS WHILE YOU ARE WAITING FOR YOUR FOLLOW UP APPOINTMENT; EITHER CONTACT YOUR PRIMARY CARE DOCTOR, THE PHYSICIAN WHOSE NAME AND NUMBER YOU WERE GIVEN, OR RETURN TO THE ED IMMEDIATELY. Attending Signature Attending Signature I have reviewed the PA/SALESPERSON [employer]'s note and plan of care. I was available for consultation as needed during the patient's visit in the emergency department. I agree with the clinical impression, plan, and disposition. (KEVON VIZCARRA DO) JOE AREVALO Mar 22, 2022 16:40 KEVON VIZCARRA DO March 26, 2022 23:32
--- NOTE | 2022-03-25 05:57 | EKG ---
[facility] [address] [place] [address] Test Date: 2022-03-22 Test Time: 12:16:08 Pat Name: EDISON DUNCAN Department: Room: Gender: F Chiropractor Assistant: : [id number] Requested By: JOE AREVALO Order Number: [id number] Reading MD: Measurements Intervals [place] Rate: 94 P: 33 ME: 144 QRS: -9 QRSD: 82 T: 68 QT: 368 QTc: 466 Interpretive Statements SINUS RHYTHM VENTRICULAR PREMATURE COMPLEX(ES) LEFTWARD AXIS ABNORMAL ECG RI6.02 No previous ECG available for comparison
== END 2022-03-22 22:31 | disposition home or self-care (01) ==
LOC: ER 12:04
DX: F43.0 Acute stress reaction (principal); I49.3 Ventricular premature depolarization; R07.89 Other chest pain; M54.2 Cervicalgia; E78.00 Pure hypercholesterolemia, unspecified; I10 Essential (primary) hypertension; Z88.0 Allergy status to penicillin; Z88.1 Allergy status to other antibiotic agents; Z88.5 Allergy status to narcotic agent; Z88.6 Allergy status to analgesic agent; Z88.8 Allergy status to other drugs, medicaments and biological substances
CPT/HCPCS: 36415; 71045; 80053; 84484; 85025; 93005; 99285-25